=== PATIENT | female | born 1960 | race African-American/Black ===

== ENCOUNTER 2019-01-20 12:25 | Inpatient (IN) | payer OTHER ==
[2019-01-18 11:24] VITALS: BMI 41.3
[~2019-01-20 12:25] MED LIST: DEXAMETHASONE SOD PHOSPHATE 4 MG/1 ML VIAL ONE; GENTAMICIN SO4 80 MG/2 ML VIAL ONE; GLYCOPYRROLATE 0.2 MG/1 ML VIAL ONE; HYDROmorphone HCl 2 MG/ML VIAL ONE; ISOSULFAN BLUE 10 MG/ML VIAL SQ ONE; LABETALOL HCL 5 MG/1 ML (100MG/20 ML VIAL) ONE; LIDOCAINE HCL/PF 2% SDV 5ML VIAL ONE; METHYLENE BLUE 1% 10 MG/1 ML VIAL NR ONE; METOPROLOL TARTRATE 5 MG/5 ML VIAL ONE; MIDAZOLAM HCL 2 MG/2 ML SINGLE DOSE VIAL ONE; NEOSTIGMINE METHYLSULFATE 0.5 MG/ML - 10 ML MDV ONE; ONDANSETRON 4 MG/2 ML VIAL IVPB PRN; PROPOFOL 20 ML ONE; ROCURONIUM BROMIDE 50 MG/5 ML SYRINGE ONE; ceFAZolin SODIUM 1 GM VIAL IVPB ONE; ceFAZolin SODIUM 1 GM VIAL ONE; fentaNYL CITRATE 250 MCG/5 ML VIAL ONE
[2019-01-20] MEDS ORDERED: CYCLOBENZAPRINE HCL 5 MG TABLET PO PRN (12:27)
[2019-01-20] MEDS ORDERED: LACTATED RINGERS SOLUTION 1,000 ML IV SCH (12:30)
--- NOTE | 2019-01-20 12:33 | OP ---
Operative Note - Note: Operative Date: 01/20/19 Pre-Operative Diagnosis: right breast cancer Operation: bilateral breast reconstruction with tissue expanders and alloderm to right side Implants: bilateral tissue expanders placed Surgeon: Jackson Vera Fire Hydrant Mechanic: Bridget García Anesthesia: General Operative Report Dictated: Yes
[2019-01-20] MEDS ORDERED: PROPOFOL 20 ML ONE (14:23)
[2019-01-20] MEDS ORDERED: traMADol HCL 50 MG TABLET PO PRN (14:26)
[2019-01-20] MEDS ORDERED: oxyCODONE HCL 5 MG TABLET PO PRN (14:26)
--- NOTE | 2019-01-20 14:52 | SURG ---
Surgery Mailing Clerk Note Mailing Clerk: Bridget García PA-C (Suzy) Date of Service: 01/20/19 Diagnosis: Right breast cancer Procedure: Operation: bilateral breast reconstruction with tissue expanders and alloderm to right side I was present for the entirety of the operative procedure. For further detail, please refer to operative report. Visit type - Case Type Case Type: Scheduled - Emergency Emergency Visit: No - New patient This patient is new to me today: Yes Date on this admission: 01/20/19 - Critical Care Critical Care patient: No
[2019-01-20] MEDS ORDERED: PT OWN MED DRAWER 7, Y5N ONE (16:49)
[2019-01-20] MEDS: ACETAMINOPHEN 325 MG TABLET (FP) PO SCH ×2 (17:03→21:28)
[2019-01-20] MEDS: INSULIN SLIDING SCALE (NOVOLOG) 1 VIAL SQ SCH ×2 (17:03→21:26)
[2019-01-20] MEDS ORDERED: DEXTROSE 5%-WATER - 50 ML IVPB ONE (17:31)
[2019-01-20] MEDS ORDERED: ceFAZolin SODIUM 1 GM VIAL ONE (17:31)
[2019-01-20] MEDS: CEFAZOLIN 1 GM in DEXTROSE 5%-WATER - 50 ML IVPB SCH (17:47)
[2019-01-20] MEDS ORDERED: CEFAZOLIN 1 GM in DEXTROSE 5%-WATER - 50 ML IVPB SCH (18:00)
[2019-01-20] MEDS: oxyCODONE HCL 10 MG SUSTAINED ACTING TABLET PO SCH (21:26)
[2019-01-20] MEDS: ATORVASTATIN CA 10 MG TABLET (FP) PO SCH (21:28)
[2019-01-21] MEDS ORDERED: ceFAZolin SODIUM 1 GM VIAL ONE ×2 (02:43→09:26)
[2019-01-21] MEDS ORDERED: DEXTROSE 5%-WATER - 50 ML IVPB ONE ×2 (02:44→09:26)
[2019-01-21] MEDS: CEFAZOLIN 1 GM in DEXTROSE 5%-WATER - 50 ML IVPB SCH ×2 (02:47→09:27)
[2019-01-21] MEDS: ACETAMINOPHEN 325 MG TABLET (FP) PO SCH ×4 (03:37→21:45)
[2019-01-21] MEDS: INSULIN SLIDING SCALE (NOVOLOG) 1 VIAL SQ SCH ×4 (06:43→21:46)
--- NOTE | 2019-01-21 07:24 | OP ---
DATE OF OPERATION: 01/20/2019 PREOPERATIVE DIAGNOSIS: Right breast cancer. POSTOPERATIVE DIAGNOSIS: Right breast cancer. PROCEDURE PERFORMED: Right mastectomy, right limited axillary dissection. SURGEON: Paulo Mittal M.D. CAR WRECKER: Keegan Leigh DO ANESTHESIA: General. ANESTHESIOLOGIST: Maury Vega M.D. ESTIMATED BLOOD LOSS: Minimal. SPECIMEN: Right breast and limied axillary contents. INDICATIONS FOR PROCEDURE: This is a 58-year-old female who is biopsy proven for right breast cancer. She is here today for simple mastectomy, limited axillary dissection and sentinel lymph node biopsy. DESCRIPTION OF PROCEDURE: The patient was identified earlier this morning and taken to the nuclear suite, where she underwent injection of technetium. She was then brought back to the PACU, marked by the plastic surgeon and taken to the operating room. Once the patient was placed under general anesthesia, the upper chest on both sides was then prepped and draped in the usual sterile fashion with Betadine, followed by ChloraPrep. The plastic surgeon proceeded to do the left breast reconstruction (the patient is status post mastectomy many years ago). During this time course, the incision in the right axilla was made a deepened through the subcutaneous tissue. Using the Gamma probe and visualization of the blue dye, the sentinel lymph node was identified in the right axilla. The counts were well over 400. The fat and axillary contents around the sentinel lymph node were then taken with the cautery and a limited group of level 1 lymph nodes was excised. Ex vivo the counts were between 600 to 700, and the sentinel lymph node was tagged with a double silk stitch marking the sentinel lymph node. There was an associated blue lymph node with it, and that was tagged as an associated lymph node, single long blue. The axilla was then subsequently irrigated. The operative field was noted to be hemostatic. The specimen was handed off and sent to pathologist for frozen section. Ultimately the frozen section came back negative for carcinoma in the limited axillary contents. During the evaluation of the frozen section, the mastectomy ensued. The skin was incised along the upper lips drawn by the plastic surgeon and deepened into the dermis. Two flaps were then subsequently created. The superior flap was taken to the level of the clavicle and the inferior flap was taken approximately 4 inches below the inframammary fold. The right breast itself was removed from the chest wall along with the pectoralis fascia sharply and the edge along the pectoralis muscle. The fat was then off with the cautery. Larger vessels were clamped and tied with 3-0 Vicryl suture. The specimen was then subsequently laterally taken to the level of the latissimus. It was then handed off and a single stitch marked the tail of the right breast. The right chest wall was irrigated with saline. The operative field was noted to be hemostatic. By this point the frozen had come back stating lymph nodes negative and the plastic surgeon ensued with his portion of the operation on the right side. Please refer to Plastic's dictation for reconstruction. At this point my sponge and instrument counts were correct, and I left the operation to allow the plastic surgeon to reconstruct this patient. Otilia ENGLAND [id number] cc: MD BOSTON HARRIS MD
--- NOTE | 2019-01-21 08:14 | PN ---
Progress Note (short form) - Note Progress Note: POD 1, s/p bilateral breast reconstruction with tissue expanders and alloderm to right side Pt seen and examined. Reports she is doing "okay" overnight. Tolerating PO. Voiding without issue. No n/v. Pain controlled with pain regimen. Has been oob to the restroom. Denies cp/sob, n/v/d. Vital Signs Temp 98.7 F 01/21/19 07:15 Pulse 111 H 01/21/19 07:15 Resp 18 01/21/19 07:15 BP 130/82 01/21/19 07:15 Pulse Ox 97 01/20/19 21:00 Intake & Output 01/20/19 01/21/19 01/21/19 23:59 11:59 23:59 Intake Total 750 1150 Output Total 1060 135 Balance -310 1015 Intake: IV 550 850 Lactated Ringers Solution 850 1,000 ml @ 75 mls/hr IV ASDIR DALLAS Rx#:[id number] IVPB 50 Oral 200 250 Output: Drainage 260 135 BELINDA DRAIN 1 50 40 BELINDA DRAIN 2 90 55 BELINDA DRAIN 3 70 40 Urine 800 Other: Voiding Method Toilet Toilet # Unmeasured Voids Void 2 Bowel Movement No Gen: awake, alert, nad, walking from bathroom. Daughter at bedside Resp: Unlabored on RA Chest: dressing c/d/i. Flaps warm, well perfused. Incisions c/d/i, no erythema or drainage. Jps in place with minimally serosanguinous drainage in reservoir. Tubing stripped. A/P: 58 y/o F w/ PMHx htn, hld, NIDDM, GERD, h/o L breast cancer s/p mastectomy/ chemo 10 years ago now with recurrent breast cancer on R side, POD 1, s/p bilateral breast reconstruction with tissue expanders and alloderm to right side. BELINDA output (3 JPS total) average 20-30mls Afebrile, VSS -Continue pain control -Dm diet -OOb ad jayce -Keep dressings c/d/i -Keep JPs in place, monitor and record output -FS, ISS -VS per protocol d/w attending Dr Vera
[2019-01-21] MEDS: LISINOPRIL 20 MG TABLET (FP) PO SCH (09:34)
[2019-01-21] MEDS: FAMOTIDINE 20 MG TABLET PO SCH (09:36)
[2019-01-21] MEDS: amLODIPine BESYLATE 10 MG TABLET (FP) PO SCH (09:37)
[2019-01-21] MEDS: HEPARIN NA (PORCINE) 5,000 UNITS/ML 1ML VIAL SQ SCH ×2 (09:38→21:44)
[2019-01-21] MEDS: oxyCODONE HCL 10 MG SUSTAINED ACTING TABLET PO SCH ×2 (09:38→21:45)
--- NOTE | 2019-01-21 09:51 | OP ---
DATE OF OPERATION: 01/20/2019 TITLE OF PROCEDURE: 1. Bilateral breast reconstruction. 2. Right-sided immediate breast reconstruction with tissue party director and acellular dermal matrix, with additional 5-cm complex closure of right axillary wound. 3. Left-sided delayed breast reconstruction with tissue party director. ATTENDING SURGEON: Jackson Vera MD CORPORATE SALES MANAGER: ROSE Grubbs The procedure was performed in combination with a right-sided mastectomy performed by Dr. Paulo Mittal. That portion of the procedure will be dictated by Dr. Mittal. DESCRIPTION OF PROCEDURE: The patient was marked in the holding area. Dr. Mittal and I are in agreement of the incisions. The risks, benefits and alternatives to the procedure were discussed at length. The patient is aware of incisions and resulting scars. Sequential compression stockings and BREONNA hose were given in the holding area. She was then brought to the operating room and placed in the supine position. Ancef 2 g was given preoperatively. Pillows were placed below the knees. All appropriate position aids were used. A Gutierres catheter was placed. The patient was then prepped and draped in the standard sterile fashion. A time-out was called. Patient, procedure, site and side were verified. Dr. Mittal and his assistant professor began the surgery on the patient's right side while the delayed reconstruction is then performed by me on the patient's left side. An incision is made in the existing mastectomy scar. The scar is fully excised and through the excised scar, dissection was carried down to the level of the pectoralis major muscle. The lateral border of the pectoralis major muscle is identified and dissected free from the surrounding tissue. A subpectoral plane is then developed to the preoperative markings of the inferior extent of the party director. This is a centimeter inferior to the existing inframammary fold. The party director was brought onto the field. New gloves. It was evacuated of all air and placed in position. It is secured with 3-0 PDS sutures at the suture tabs to prevent rotation. It is oriented properly. It is then filled in situ to 300 mL of saline. Closure was then performed in the submuscular plane to the lateral fascial sling and the lateral border of the pectoralis major muscle with running locking 3-0 PDS suture. A size 10 BELINDA drain is brought out through a lateral stab wound incision and secured with 2-0 silk drain suture. This is partially submuscular and partially subcutaneous. The skin is then slightly undermined on either side and then is closed with a series of interrupted buried deep dermal 3-0 Monocryl suture, followed by running subcuticular 3-0 Monocryl suture. Attention was then directed toward the contralateral right side, after Dr. Mittal had completed the mastectomy. At this point meticulous hemostasis is achieved. The lateral border of the pectoralis major muscle is identified and a subpectoral pocket is developed. This is developed inferiorly to the point of the preoperative markings. A pocket large enough to accommodate the party director is then used. It should be noted that this party director was inadvertently nicked and was discarded. A second party director is then brought onto the field. It is evacuated of all air. It is placed into the pocket, oriented properly. It is secured using the incorporated suture tabs with 3-0 PDS suture. It is inflated to 300 mL. A lateral sling of AlloDerm is then sewn onto the lateral mammary fold in the lateral portion of the inferior mammary fold. This is secured to the chest wall laterally and medially it is secured to the lateral free edge of the pectoralis major muscle, holding the position of the implant. The skin is clearly clinically viable. Closure is performed of the breast capsular tissue with a running 3-0 Monocryl suture, followed by a running locking 3-0 Monocryl suture within the deep dermis, followed by running subcuticular 3-0 Monocryl suture within the epidermis. Several 4-0 nylon sutures are used to secure the closure at multiple locations. This is done over 2 separate size 10 flat BELINDA drains, one in the inferior recess of the wound and the second in the superior recess of the wound, secured with a 2-0 drain suture brought out through lateral stab wound incisions. The axilla is then addressed. There is a 5-cm incision which is closed first of the deep fascial tissues with a 3-0 Monocryl suture. The skin is then approximated with a series of interrupted buried deep dermal 3-0 Monocryl suture, followed by running subcuticular 3-0 Monocryl. All incisions were dressed with Steri-Strips. Drains were placed to bulb suction. A surgical bra is applied. The patient is awoken from anesthesia, having tolerated the procedure well. Otilia [id number]
--- NOTE | 2019-01-21 12:04 | PN ---
Progress Note (short form) - Note Progress Note: all tissues viable BELINDA thin and slow VSS AF pain well controlled with CASING FLUID TENDER PlaN FOR AMBULATION AND MDISCHARGE TOMORROW.
--- NOTE | 2019-01-21 14:43 | PN ---
Progress Note (short form) - Note Progress Note: surgery pt seen and examined. dressing intact. feels well Plan- discharge per plastics. f/u in 2-[address] Mittal. rx percocet at discharge.
[2019-01-21] MEDS ORDERED: INSULIN (NOVOLOG) ASPART 100 UNITS/ML 10ML VIAL ONE ×2 (17:05→21:30)
[2019-01-21] MEDS: metFORMIN HCL 500 MG TABLET (FP) PO SCH (17:09)
[2019-01-21] MEDS: CEPHALEXIN MONOHYDRATE 500 MG CAPSULE (UD) PO SCH ×2 (19:00→21:45)
[2019-01-21] MEDS: oxyCODONE HCL 5 MG TABLET PO PRN (20:50)
[2019-01-21] MEDS: ATORVASTATIN CA 10 MG TABLET (FP) PO SCH (21:45)
[2019-01-22] MEDS: oxyCODONE HCL 5 MG TABLET PO PRN ×2 (00:41→06:14)
[2019-01-22] MEDS: ACETAMINOPHEN 325 MG TABLET (FP) PO SCH ×2 (03:55→09:35)
[2019-01-22 06:10] VITALS: BP 158/78; PULSE 110; TEMP 99.1
[2019-01-22] MEDS: INSULIN SLIDING SCALE (NOVOLOG) 1 VIAL SQ SCH (06:11)
[2019-01-22] MEDS: metFORMIN HCL 500 MG TABLET (FP) PO SCH (06:11)
--- NOTE | 2019-01-22 07:54 | PN ---
Progress Note (short form) - Note Progress Note: Patient is comfortable All tissues viable and without collections BELINDA's thin and functioning pure serosanguinous Ambulating OK for discharge with PO abx and drain care. f/u cruz one week and Mittal two weeks
[2019-01-22] MEDS ORDERED: PT OWN MED DRAWER 7, Y5N ONE (09:21)
[2019-01-22] MEDS: FAMOTIDINE 20 MG TABLET PO SCH (09:34)
[2019-01-22] MEDS: LISINOPRIL 20 MG TABLET (FP) PO SCH (09:34)
[2019-01-22] MEDS: oxyCODONE HCL 10 MG SUSTAINED ACTING TABLET PO SCH (09:34)
[2019-01-22] MEDS: CEPHALEXIN MONOHYDRATE 500 MG CAPSULE (UD) PO SCH (09:34)
[2019-01-22] MEDS: amLODIPine BESYLATE 10 MG TABLET (FP) PO SCH (09:34)
[2019-01-22] MEDS: HEPARIN NA (PORCINE) 5,000 UNITS/ML 1ML VIAL SQ SCH (09:42)
--- NOTE | 2019-01-22 18:03 | PATH ---
Surgical Pathology Report Patient Name: FAUSTO KEMP [facility]. Rec. #: [id number] /Age/Gender: 1960 (Age: 58) / F Account: <[id number]> Location: AMBULATORY SURG Taken: 01/20/2019 Received: 01/20/2019 Reported: 01/22/2019 Physicians: Jackson Mittal Specimen(s) Received A: RIGHT BREAST SENTINEL LYMPH NODE AND ASSOCIATED LYMPH NODE B: RIGHT BREAST TISSUE SINGLE LONG CISNEROS TAIL OF BREAST Clinical History Right breast cancer Intraoperative Consult Diagnosis A. Right breast sentinel lymph node and associated lymph node, frozen section: One associated lymph node, negative for metastatic carcinoma. One sentinel lymph node, negative for metastatic carcinoma. The diagnosis was relayed to Joaquina Horan in the operative room. Tabatha Rainey M.D., 01/20/2019 Final Diagnosis A. ASSOCIATED LYMPH NODE BLUE, SENTINEL LYMPH NODE BLUE AND HOT, EXCISION (FS): ONE ASSOCIATED LYMPH NODE, NEGATIVE FOR METASTATIC CARCINOMA (0/1). ONE SENTINEL LYMPH NODE, NEGATIVE FOR METASTATIC CARCINOMA (0/1). B. RIGHT BREAST TISSUE, MASTECTOMY: INVASIVE DUCTAL CARCINOMA, POORLY DIFFERENTIATED (TUBULE SCORE 3/3, NUCLEAR GRADE: 3/3, MITOTIC SCORE: 3/3, TOTAL SCORE 9/9, JAYY GRADE 3), MEASURING 0.7 CM IN GREATEST DIMENSION, MICROSCOPICALLY. DUCTAL CARCINOMA IN SITU (DCIS) PRESENT, HIGH NUCLEAR GRADE, SHOWING SOLID, FLAT, AND MICROPAPILLARY PATTERNS, WITH ASSOCIATED NECROSIS AND CALCIFICATIONS. SURGICAL MARGINS ARE UNINVOLVED BY CARCINOMA. INVASIVE CARCINOMA AND DCIS ARE AT 35 MM FROM THE CLOSEST (ANTERIOR SOFT TISSUE) MARGIN. NO LYMPHOVASCULAR INVASION IS IDENTIFIED. PATHOLOGIC STAGE (pTNM): pT1b, pN(sn)0 SEE ALSO INVASIVE CARCINOMA CASE SUMMARY BELOW. Comment: Immunohistochemical stains performed and interpreted at [facility] show the following results: E-Cadherin shows membranous staining of the tumor cells, supports a ductal phenotype. p63 shows loss of the myoepithelial cell layer in the areas of invasive carcinoma. Positive and negative controls (internal if applicable) show appropriate results. Comments Breast Invasive Carcinoma: Surgical Pathology Case Summary (Based on AJCC TNM 8 th edition) Procedure _x_ Total mastectomy (including nipple-sparing and skin-sparing mastectomy) Specimen Laterality _x_ Right Tumor Size _x_ Greatest dimension of largest invasive focus >1 mm (millimeters): 7 mm Histologic Type _x_ Invasive carcinoma of no special type (ductal, not otherwise specified) Histologic Grade (Jayy Histologic Score) Glandular (Acinar)/Tubular Differentiation _x_ Score 3 (<10% of tumor area forming glandular/tubular structures) Nuclear Pleomorphism _x_ Score 3 Mitotic Rate _x_ Score 3 Overall Grade _x_ Grade 3 (scores of 8 or 9) Tumor Focality _x_ Single focus of invasive carcinoma Ductal Carcinoma In Situ (DCIS) _x_ DCIS is present in specimen _x_ Positive for extensive intraductal component (EIC) Margins Invasive Carcinoma Margins _x_ Uninvolved by invasive carcinoma Distance from closest margin (millimeters): 35mm Closest margin: anterior soft tissue margin DCIS Margins _x_ Uninvolved by DCIS Distance from closest margin (millimeters): 35 mm Closest margin: anterior soft tissue margin Regional Lymph Nodes _x_ Uninvolved by tumor cells Number of Lymph Nodes Examined: 2 Number of [place] Nodes Examined: 2 Treatment Effect _x_ No known presurgical therapy Lymphovascular Invasion _x_ Not identified Pathologic Stage Classification (pTNM, AJCC 8th Edition) Primary Tumor (Invasive Carcinoma) (pT) _x_ pT1b: Tumor >5 mm but =10 mm in greatest dimension Regional Lymph Nodes (pN) Category (pN) _x_ pN(sn)0: No regional lymph node metastasis identified or ITCs only Biomarker Studies Results of ER, [place], Her2, and Ki67 studies will be reported separately in an addendum. Positive and negative controls (internal if applicable) show appropriate results. Formalin fixation time is within current ASCO/CAP recommendations for ER, [place] and Her2 testing. Cold ischemic time not given. Electronically Signed Jacqui Rainey M.D. Gross Description A. Received fresh labeled "single long associated lymph node blue; double long sentinel lymph node blue and hot," is a 5.5 x 4.0 x 2.5 cm portion of yellow, lobulated adipose tissue. There is a double suture marking the sentinel lymph node and a single suture marking an associated lymph node, per the surgeon. The sentinel lymph node measures 1.6 x 1.0 x 0.5 cm and the associated lymph node measures 1.0 x 0.8 x 0.5 cm. The lymph nodes are bisected and entirely submitted for frozen section. The frozen section residue is entirely submitted in 3 cassettes as follows: 1-bisected associated smaller lymph node; 3-5-bfgrastn larger sentinel lymph node. B. Received in formalin, labeled "right breast tissue," is a 1117 gram, 19.0 x 15.5 x 9.5 cm. right mastectomy specimen with a single long suture marking the tail of the breast, per the surgeon. The anterior surface displays an 18.5 x 12.0 cm brown, elliptical portion of skin with a 1.0 cm in diameter nipple. The deep margin is inked green and the anterior soft tissue margin is inked blue. The specimen is serially sectioned from lateral to medial. Sectioning reveals a 1.0 x 1.0 x 0.9 cm trevino, indurated, ill-defined mass in the lower outer quadrant (LOQ). The mass is 2.5 cm from the skin and 3.5 cm from the anterior soft tissue margin. The mass is 6 cm from the deep margin. The remaining breast parenchyma displays foci of white fibrous tissue. Customer Advisor sections are submitted in 14 cassettes as follows: 1-serially sectioned nipple; 2-subareolar shave; 3-one full face section of LOQ mass; 4-additional full face section of LOQ mass; 5-2-dmiswursjl LOQ tissue surrounding mass; 7-8-upper outer quadrant; 9-10-upper inner quadrant; 11-12-lower inner quadrant; 13-skin and anterior soft tissue margins; 14-deep margin. Total formalin fixation time: Approximately 24 hours. 01/20/2019 [facility]01/20/2019
== END 2019-01-22 10:46 | disposition home or self-care (01) | DRG 362 ==
LOC: JASUSAT 12:25 → J6S 15:56 → JASUSAT 15:57 → JERBED 15:57 → UNDOADMIN 01-21 12:04 → JERBED 01-21 12:04 → UNDOADMIN 01-21 12:11 → JERBED 01-21 13:56 → J6S 01-21 13:56
PROVIDERS: ADMIT Plastic Surgery; ATTEND Plastic Surgery
PROC: 0HTT0ZZ Resection of Right Breast, Open Approach (ICD-10-PCS; principal; 2019-01-20 08:00)
PROC: 07T50ZZ Resection of Right Axillary Lymphatic, Open Approach (ICD-10-PCS; 2019-01-20 08:00)
PROC: 0HHV0NZ Insertion of Tissue Expander into Bilateral Breast, Open Approach (ICD-10-PCS; 2019-01-20 08:00)
DX: C50.911 Malignant neoplasm of unspecified site of right female breast (principal); I10 Essential (primary) hypertension; E11.9 Type 2 diabetes mellitus without complications; K21.9 Gastro-esophageal reflux disease without esophagitis; Z40.01 Encounter for prophylactic removal of breast; E66.9 Obesity, unspecified; Z68.41 Body mass index [BMI] 40.0-44.9, adult
CPT/HCPCS: 36415; 78195-TC; 82947; 82962; 86850; 86900; 86901; 94010; 94760; A9541; J1644